=== PATIENT | female | born 1980 | race Caucasian/White ===

== ENCOUNTER 2019-11-08 02:18 | Emergency (ER) | payer MEDICAID ==
[~2019-11-08] VITALS: Ht 152.4 cm; Wt 63.6 kg
[2019-11-08 02:24] VITALS: TEMP 98.3
[2019-11-08] MEDS ORDERED: KAPSPARGO SPRIN25 MG PO (03:02)
[2019-11-08] MEDS ORDERED: ZOFRAN8 MG PO (03:03)
[2019-11-08] MEDS ORDERED: BRIVIACT75 MG PO (03:03)
[2019-11-08] MEDS ORDERED: XOPENEX HF0.045 MG/A IH (03:04)
[2019-11-08 04:02] VITALS: BP 122/72; PULSE 89
== END 2019-11-08 04:02 | disposition home or self-care (01) ==
LOC: COL.ER 02:18
DX: R04.0 Epistaxis (principal); F41.9 Anxiety disorder, unspecified; J45.909 Unspecified asthma, uncomplicated; G40.909 Epilepsy, unspecified, not intractable, without status epilepticus; F17.210 Nicotine dependence, cigarettes, uncomplicated; Z88.1 Allergy status to other antibiotic agents; Z88.6 Allergy status to analgesic agent

== ENCOUNTER 2019-12-29 15:38 | Emergency (ER) | payer MEDICAID ==
[~2019-12-29] VITALS: Ht 152.4 cm; Wt 65.9 kg
[~2019-12-29 15:38] MED LIST: BRIVIACT75 MG PO; KAPSPARGO SPRIN25 MG PO; XOPENEX HF0.045 MG/A IH; ZOFRAN8 MG PO
[2019-12-29 15:51] VITALS: TEMP 98.6
[2019-12-29 16:52] LABS: COLLECTION METHOD CLEAN CATCH
[2019-12-29 16:56] LABS: BASO # 0.1 (0.0-0.2); BASO % 0.8 % (0.0-2.0); EOS # 0.2 (0.0-0.7); EOS % 2.1 % (0-4.0); GRAN # 5.2 (1.4-6.5); GRAN % 62.6 % (42.2-75.2); HEMATOCRIT 43.4 % (37.0-47.0); HEMOGLOBIN 14.9 g/dl (12.5-16.0); LYMPH # 2.1 (1.2-3.4); LYMPH % 25.6 % (20.0-51.0); MEAN CELL VOLUME 89 fl (80.0-100.0); MEAN CORPUSCULAR HEMOGLOBIN 31 pg (27.0-31.0); MEAN CORPUSCULAR HGB CONC 34 g/dl (33.0-37.0); MEAN PLATELET VOLUME 11.2 fl (7.4-10.4); MONO # 0.7 (0.1-0.6); MONO % 8.7 % (1.7-9.3); PLATELET COUNT 206 K/mm3 (130-400); RED BLOOD COUNT 4.89 M/mm3 (4.10-5.30); REDCELL DISTRIBUTION WIDTH-CV 12.7 % (11.5-14.5)
[2019-12-29 16:59] LABS: MUCOUS Present /lpf; PH 5 (5-8); SQUAMOUS EPITHELIAL 0-2 /hpf; URINE APPEARANCE Hazy; URINE BACTERIA None Seen /hpf; URINE BILIRUBIN Negative (NEGATIVE); URINE BLOOD Negative (NEGATIVE); URINE COLOR Yellow; URINE GLUCOSE Negative (NEGATIVE); URINE KETONE Negative (NEGATIVE); URINE LEUKOCYTE ESTERASE Negative (NEGATIVE); URINE NITRATE Negative (NEGATIVE); URINE PROTEIN(semi-quant) Negative (NEGATIVE); URINE RBC 0-2 /hpf; URINE UROBILINOGEN Negative (NEGATIVE)
[2019-12-29 17:10] LABS: ALANINE AMINOTRANSFERASE 13 U/L (4-34); ALBUMIN 4.5 gm/dL (3.5-5.0); ALKALINE PHOSPHATASE 90 U/L (50-136); ANION GAP 9 mmol/L (7-16); AST,SGOT 18 U/L (15-37); BILIRUBIN,TOTAL 0.5 mg/dL (0.0-1.0); BLOOD UREA NITROGEN 10 mg/dL (7-17); CALCIUM 9.2 mg/dL (8.4-10.2); CARBON DIOXIDE 22 mmol/L (22-30); CHLORIDE 106 mmol/L (98-107); CREATININE, serum 0.75 (0.52-1.25); GLUCOSE 92 mg/dL (74-106); LIPASE 52 U/L (23-300); POTASSIUM 3.8 mmol/L (3.4-5.0); SODIUM 137 mmol/L (137-145); TOTAL PROTEIN 7.1 gm/dL (6.4-8.2)
[2019-12-29 17:14] LABS: C-REACTIVE PROTEIN < 0.5 mg/dL (0.0-0.9)
[2019-12-29 19:00] VITALS: BP 116/65; PULSE 63
== END 2019-12-29 19:00 | disposition home or self-care (01) ==
LOC: COL.ER 15:38
PROVIDERS: Family Medicine
DX: R10.11 Right upper quadrant pain (principal); G40.909 Epilepsy, unspecified, not intractable, without status epilepticus; Z90.49 Acquired absence of other specified parts of digestive tract
CPT/HCPCS: C9113; J2405; J3010; J7030

== ENCOUNTER 2020-05-23 11:37 | Day surgery (SDC) | payer MEDICAID ==
[~2020-05-23] VITALS: Ht 152.4 cm; Wt 65.6 kg
[~2020-05-23 11:37] MED LIST changes: +BENTYL 20MG20 MG/TAB PO
[2020-05-23] MEDS ORDERED: BRIVIACT100 MG PO (12:27)
[2020-05-23] MEDS ORDERED: LOPRESSOR 225 MG/TAB (12:31)
[2020-05-23] MEDS ORDERED: SINGULAIR 110 MG/TAB PO (12:35)
[2020-05-23] MEDS ORDERED: TRIAMCINOLONE ACETON (12:39)
[2020-05-23] MEDS ORDERED: 00186-0372-20 IH (12:40)
[2020-05-23] MEDS ORDERED: PRILOSEC 20MG20 MG PO (12:42)
[2020-05-23] MEDS ORDERED: TYLENOL ELIX32 MG/M2 PO (12:43)
[2020-05-23] MEDS ORDERED: 00186-0370-20 IH (12:45)
[2020-05-23 13:14] VITALS: BP 100/85; PULSE 86; TEMP 98
[2020-05-23] MEDS ORDERED: NORCO 325 MG-51 TAB PO (15:44)
[2020-05-23 16:15] VITALS: BP 111/67; PULSE 84; TEMP 97.5
[2020-05-23 16:30] VITALS: BP 121/63; PULSE 67
--- NOTE | 2020-05-23 17:13 | NUR ---
PT RETURNED FROM PACU PER CART INTO BAY#5. PT ALERT AND ORIENTATED, AWAKE AND NEEDING TO VOID. VOIDED WITHOUT DIFFICULTY. VSS, AFEBRILE. IVF INFUSING AND PATENT. PT STATED HAVING EPISODES OF DYSTONIA IN PACU, NONE NOTED AT THIS TIME. INSERTION SITESX4 ARE DRY AND INTACT. WILL CONT TO MONITOR PROGRESS. IS TOLERATING COLA PO WITHOUT NAUSEA OR VOMIING AT THIS TIME.
--- NOTE | 2020-05-23 17:17 | NUR ---
PT CONT TO TOLERATE FLUIDS AND IS EATING CRACKERS WITHOUT NAUSEA OR VOMITING. DENIES PAIN, INSERTION SITESX4 ARE DRY AND INTACT. PT STATES WANTING TO GO HOME. DISCHARGE INSTRUCTIONS GIVEN, PT VOICES UNDERSTANDING. RETURN APPT MADE FOR 2 WEEKS AND PT IS AWARE. #20 DC'D TO RIGHT WRIST WITHOUT DIFFICULTY OR REACTION. IV WAS WRAPPED GAUZE 4X4 AND PAPER TAPE. PT WAS SATISFIED WITH IV WRAP. AFTER IV DC, WAS WRAPPED WITH GAUZE 4X4 AND COBAN PER PT REQUEST. PT HAD ALSO TAKEN 5;00PM MEDS FOR HX OF SEIZURES. PT DC'D PER WC TO FAMILY VEHICLE. BOYFRIEND, EDWARD DRIVING.
[2020-05-23 17:25] VITALS: BP 111/67; PULSE 79; TEMP 98.6
== END 2020-05-23 17:00 | disposition home or self-care (01) ==
LOC: SDCO 11:37
DX: K80.10 Calculus of gallbladder with chronic cholecystitis without obstruction (principal); K21.9 Gastro-esophageal reflux disease without esophagitis; J45.909 Unspecified asthma, uncomplicated; Z90.710 Acquired absence of both cervix and uterus; F17.210 Nicotine dependence, cigarettes, uncomplicated; Z88.1 Allergy status to other antibiotic agents; Z88.8 Allergy status to other drugs, medicaments and biological substances; Z91.018 Allergy to other foods; I10 Essential (primary) hypertension; G43.909 Migraine, unspecified, not intractable, without status migrainosus; Z20.822 Contact with and (suspected) exposure to COVID-19
CPT/HCPCS: J0690; J1100; J1885; J2405; J2704; J2710; J3010

== ENCOUNTER 2020-07-04 22:55 | Emergency (ER) | payer MEDICAID ==
[~2020-07-04] VITALS: Ht 152.4 cm; Wt 65.9 kg
[~2020-07-04 22:55] MED LIST changes: +00186-0370-20 IH; +00186-0372-20 IH; +BRIVIACT100 MG PO; +LOPRESSOR 225 MG/TAB; +NORCO 325 MG-51 TAB PO; +PRILOSEC 20MG20 MG PO; +SINGULAIR 110 MG/TAB PO; +TRIAMCINOLONE ACETON; +TYLENOL ELIX32 MG/M2 PO
[2020-07-04 23:02] VITALS: TEMP 98.1
[2020-07-04 23:47] LABS: BASO # 0.1 (0.0-0.2); BASO % 0.9 % (0.0-2.0); EOS # 0.4 (0.0-0.7); EOS % 3.8 % (0-4.0); GRAN # 6.1 (1.4-6.5); GRAN % 56.7 % (42.2-75.2); HEMATOCRIT 46.9 % (37.0-47.0); HEMOGLOBIN 15.7 g/dl (12.5-16.0); LYMPH # 3.2 (1.2-3.4); LYMPH % 29.5 % (20.0-51.0); MEAN CELL VOLUME 91 fl (80.0-100.0); MEAN CORPUSCULAR HEMOGLOBIN 30 pg (27.0-31.0); MEAN CORPUSCULAR HGB CONC 34 g/dl (33.0-37.0); MONO # 0.9 (0.1-0.6); MONO % 8.8 % (1.7-9.3); PLATELET COUNT 253 K/mm3 (130-400); RED BLOOD COUNT 5.16 M/mm3 (4.10-5.30)
[2020-07-04 23:57] LABS: ALBUMIN 4.7 gm/dL (3.5-5.0); BILIRUBIN,TOTAL 0.4 mg/dL (0.0-1.0); CALCIUM 9.2 mg/dL (8.4-10.2); CREATININE, serum 0.7 (0.52-1.25); POTASSIUM 3.6 mmol/L (3.4-5.0); TOTAL PROTEIN 7.1 gm/dL (6.4-8.2)
[2020-07-05 00:12] LABS: PROLACTIN 14.3 ng/mL (3.0-18.6)
[2020-07-05 00:37] VITALS: BP 105/72; PULSE 73
== END 2020-07-05 00:52 | disposition home or self-care (01) ==
LOC: COL.ER 22:55
PROVIDERS: Emergency Medicine
DX: G40.909 Epilepsy, unspecified, not intractable, without status epilepticus (principal); R10.11 Right upper quadrant pain; Z88.8 Allergy status to other drugs, medicaments and biological substances; Z88.1 Allergy status to other antibiotic agents; Z79.51 Long term (current) use of inhaled steroids
CPT/HCPCS: J2060; J7030

== ENCOUNTER 2020-11-11 07:00 | Emergency (ER) | payer MEDICAID ==
[~2020-11-11] VITALS: Ht 152.4 cm; Wt 65.9 kg
[2020-11-11 07:08] VITALS: TEMP 97.5
[2020-11-11 07:46] LABS: HEMATOCRIT 46.5 % (37.0-47.0); HEMOGLOBIN 15.9 g/dl (12.5-16.0); MEAN CELL VOLUME 89 fl (80.0-100.0); MEAN CORPUSCULAR HEMOGLOBIN 31 pg (27.0-31.0); MEAN CORPUSCULAR HGB CONC 34 g/dl (33.0-37.0); MEAN PLATELET VOLUME 10.7 fl (7.4-10.4); PLATELET COUNT 214 K/mm3 (130-400); RED BLOOD COUNT 5.22 M/mm3 (4.10-5.30); REDCELL DISTRIBUTION WIDTH-CV 13.4 % (11.5-14.5)
[2020-11-11 08:00] LABS: ALBUMIN 4.5 gm/dL (3.5-5.0); BILIRUBIN,TOTAL 0.6 mg/dL (0.0-1.0); C-REACTIVE PROTEIN 1.2 mg/dL (0.0-0.9); CALCIUM 8.5 mg/dL (8.4-10.2); CREATININE, serum 0.68 (0.52-1.25); POTASSIUM 3.5 mmol/L (3.4-5.0); TOTAL PROTEIN 7.2 gm/dL (6.4-8.2)
[2020-11-11 08:59] LABS: BAND 4 % (0-10); LYMPHOCYTE 5 % (20.0-51.0); NEUTROPHILS 87 % (42.0-75.2); PLATELET ESTIMATE NORMAL (NORMAL)
[2020-11-11 09:36] LABS: COLLECTION METHOD CLEAN CATCH
[2020-11-11 09:46] LABS: MUCOUS Present /lpf; PH 5 (5-8); URINE APPEARANCE Hazy; URINE BACTERIA Rare /hpf; URINE BILIRUBIN Negative (NEGATIVE); URINE BLOOD 1+ (NEGATIVE); URINE COLOR Yellow; URINE GLUCOSE Negative (NEGATIVE); URINE KETONE Trace (NEGATIVE); URINE LEUKOCYTE ESTERASE 3+ (NEGATIVE); URINE NITRATE Negative (NEGATIVE); URINE PROTEIN(semi-quant) Negative (NEGATIVE); URINE UROBILINOGEN Negative (NEGATIVE)
[2020-11-11] MEDS ORDERED: OMNICEF 300MG300 MG PO (11:02)
[2020-11-11 12:24] VITALS: BP 116/67; PULSE 111
== END 2020-11-11 11:24 | disposition home or self-care (01) ==
LOC: COL.ER 07:00
PROVIDERS: Family Medicine
DX: K52.9 Noninfective gastroenteritis and colitis, unspecified (principal); N39.0 Urinary tract infection, site not specified; J45.909 Unspecified asthma, uncomplicated; G40.909 Epilepsy, unspecified, not intractable, without status epilepticus; F17.210 Nicotine dependence, cigarettes, uncomplicated; Z90.49 Acquired absence of other specified parts of digestive tract; Z20.822 Contact with and (suspected) exposure to COVID-19; Z88.1 Allergy status to other antibiotic agents; Z79.899 Other long term (current) drug therapy
CPT/HCPCS: C9113; J0696; J2060; J2405; J2765; J7030; J7120

== ENCOUNTER 2021-01-11 18:14 | Emergency (ER) | payer MEDICAID ==
[~2021-01-11] VITALS: Ht 152.4 cm; Wt 65.9 kg
[~2021-01-11 18:14] MED LIST changes: +OMNICEF 300MG300 MG PO
[2021-01-11 18:38] VITALS: TEMP 98.4
[2021-01-11] MEDS ORDERED: PREDNISONE20 MG PO (21:29)
[2021-01-11] MEDS ORDERED: ZITHROMAX 250M250 MG PO (21:52)
[2021-01-11 22:00] VITALS: BP 115/75; PULSE 89
== END 2021-01-11 22:00 | disposition home or self-care (01) ==
LOC: COL.ER 18:14
DX: J45.909 Unspecified asthma, uncomplicated (principal); Z20.822 Contact with and (suspected) exposure to COVID-19; Z79.899 Other long term (current) drug therapy
CPT/HCPCS: J7512

== ENCOUNTER → 2021-07-06 | Outpatient (CLI) | payer MEDICAID ==
[~2021-07-06] MED LIST changes: +PREDNISONE20 MG PO; +ZITHROMAX 250M250 MG PO
== END ==
LOC: ZCOL.LAB 16:30
DX: L02.411 Cutaneous abscess of right axilla (principal)

== ENCOUNTER 2023-11-02 14:38 | Emergency (ER) | payer MEDICAID ==
[~2023-11-02] VITALS: Ht 152.4 cm; Wt 78.6 kg
[2023-11-02 14:46] VITALS: TEMP 98.3
[2023-11-02] MEDS ORDERED: Morphine 4 MG/ML VIAL IV ONE (15:15)
[2023-11-02 17:00] VITALS: BP 141/77; PULSE 74
== END 2023-11-02 17:00 | disposition home or self-care (01) ==
LOC: COL.ER 14:38
DX: M25.511 Pain in right shoulder (principal); Z91.040 Latex allergy status

== ENCOUNTER 2023-12-19 17:13 | Emergency (ER) | payer MEDICAID ==
[~2023-12-19] VITALS: Ht 152.4 cm; Wt 80.5 kg
[2023-12-19 17:18] VITALS: TEMP 98.5
[2023-12-19] MEDS ORDERED: Pantoprazole 40 MG in NS 10 ML IV ONE (17:45)
[2023-12-19] MEDS ORDERED: Lidocaine 2% Viscous 15 ML UNIT DOSE MM ONE (17:45)
[2023-12-19 17:46] LABS: BASO # 0.1 K/mm3 (0.0-0.2); BASO % 0.6 % (0.0-2.0); EOS # 0.1 K/mm3 (0.0-0.7); EOS % 0.9 % (0.0-4.0); GRAN # 6.1 K/mm3 (1.4-6.5); GRAN % 70.2 % (42.2-75.2); HEMATOCRIT 41.5 % (37.0-47.0); LYMPH # 1.5 K/mm3 (1.2-3.4); LYMPH % 16.8 % (20.0-51.0); MEAN CELL VOLUME 87 fl (80.0-100.0); MEAN CORPUSCULAR HEMOGLOBIN 30 pg (27-31); MEAN CORPUSCULAR HGB CONC 34 g/dl (33.0-37.0); MEAN PLATELET VOLUME 11.2 fl (7.4-10.4); MONO % 11.2 % (1.7-9.3); PLATELET COUNT 189 K/mm3 (130-400); RED BLOOD COUNT 4.75 M/mm3 (4.10-5.30)
[2023-12-19 17:48] LABS: INR 1.1 (0.8-3.0); PROTHROMBIN TIME 11.6 SECONDS (9.7-12.8)
[2023-12-19 17:51] LABS: PARTIAL THROMBOPLASTIN TIME 32.5 SECONDS (26.0-37.0)
[2023-12-19 18:00] LABS: ALANINE AMINOTRANSFERASE 20 U/L (0-55); ALKALINE PHOSPHATASE 99 U/L (40-150); ANION GAP 12 mmol/L (7-16); AST,SGOT 15 U/L (5-34); BILIRUBIN,TOTAL 0.4 mg/dL (0.2-1.2); BLOOD UREA NITROGEN 7 mg/dL (7-19); C-REACTIVE PROTEIN 7.52 mg/dL (0.00-0.50); CALCIUM 9.1 mg/dL (8.4-10.2); CHLORIDE 104 mEq/L (98-107); CREATININE, serum 0.74 mg/dL (0.57-1.11); GLUCOSE 86 mg/dL (70-99); LIPASE 15 U/L (8-78); POTASSIUM 3.6 mEq/L (3.5-4.5); SODIUM 138 mEq/L (136-145); TOTAL PROTEIN 6.9 g/dl (6.2-8.1)
[2023-12-19 18:09] LABS: TROPONIN-I < 0.010 ng/mL (0.00-0.033)
[2023-12-19] MEDS ORDERED: Iohexol 300 - 100 ML VIAL IV ONE (18:43)
[2023-12-19] MEDS ORDERED: NS 50 ML IV ONE (18:43)
[2023-12-19 19:16] LABS: COLLECTION METHOD CLEAN CATCH
[2023-12-19] MEDS ORDERED: LYRICA 150MG C150 MG PO (19:17)
[2023-12-19] MEDS ORDERED: ZOLOFT 100MG100 MG PO (19:18)
[2023-12-19] MEDS ORDERED: TESSALON PERLE200 MG (19:19)
[2023-12-19] MEDS ORDERED: ISOPTIN SR120 MG PO (19:20)
[2023-12-19] MEDS ORDERED: Ondansetron 4 MG/2 ML VIAL IV ONE (19:30)
[2023-12-19] MEDS ORDERED: Morphine 4 MG/ML VIAL IV ONE (19:30)
[2023-12-19 19:31] LABS: URINE APPEARANCE CLEAR (CLEAR/HAZY); URINE BLOOD NEGATIVE (NEGATIVE); URINE COLOR YELLOW (YELLOW); URINE GLUCOSE NEGATIVE (NEGATIVE); URINE KETONE NEGATIVE (NEGATIVE); URINE NITRATE NEGATIVE (NEGATIVE); URINE PROTEIN(semi-quant) NEGATIVE (NEGATIVE); URINE UROBILINOGEN 0.2 E.U/dL (0.2-1.0)
[2023-12-19] MEDS ORDERED: Home oxyCODONE/Acetaminophen 5/325 MG #4 TAB/PACK PO ONE (20:00)
[2023-12-19 20:08] VITALS: BP 109/66; PULSE 96
== END 2023-12-19 20:08 | disposition home or self-care (01) ==
LOC: COL.ER 17:13
PROVIDERS: Emergency Medicine
DX: R07.89 Other chest pain (principal); M54.6 Pain in thoracic spine; Z88.1 Allergy status to other antibiotic agents; Z91.040 Latex allergy status; Z87.891 Personal history of nicotine dependence
CPT/HCPCS: J2270; J2405; J2470; Q9967

== ENCOUNTER 2024-01-26 18:13 | Emergency (ER) | payer MEDICAID ==
[~2024-01-26] VITALS: Ht 152.4 cm; Wt 77.3 kg
[~2024-01-26 18:13] MED LIST changes: +ISOPTIN SR120 MG PO; +LYRICA 150MG C150 MG PO; +TESSALON PERLE200 MG; +ZOLOFT 100MG100 MG PO
[2024-01-26 18:24] VITALS: TEMP 98.2
[2024-01-26] MEDS ORDERED: droPERidol 2.5 MG/ML 2 ML VIAL IV ONE (19:15)
[2024-01-26] MEDS ORDERED: NS 1,000 ML IV ONE (19:15)
[2024-01-26 19:33] LABS: BASO % 0.4 % (0.0-2.0); EOS % 0.1 % (0.0-4.0); GRAN # 5.9 K/mm3 (1.4-6.5); GRAN % 82.7 % (42.2-75.2); HEMATOCRIT 40.9 % (37.0-47.0); HEMOGLOBIN 14.3 g/dl (12.5-16.0); LYMPH # 0.7 K/mm3 (1.2-3.4); MEAN CELL VOLUME 86 fl (80.0-100.0); MEAN CORPUSCULAR HEMOGLOBIN 30 pg (27-31); MEAN CORPUSCULAR HGB CONC 35 g/dl (33.0-37.0); MEAN PLATELET VOLUME 11.8 fl (7.4-10.4); MONO # 0.5 K/mm3 (0.1-0.6); MONO % 6.5 % (1.7-9.3); PLATELET COUNT 154 K/mm3 (130-400); RED BLOOD COUNT 4.75 M/mm3 (4.10-5.30)
[2024-01-26 19:53] LABS: ALBUMIN 3.9 g/dL (3.5-5.0); BILIRUBIN,TOTAL 0.4 mg/dL (0.2-1.2); CALCIUM 8.8 mg/dL (8.4-10.2); CREATININE, serum 0.76 mg/dL (0.57-1.11); POTASSIUM 4.6 mEq/L (3.5-4.5)
[2024-01-26 21:05] LABS: COLLECTION METHOD CLEAN CATCH
[2024-01-26 21:09] LABS: PH 5.5 (5.0-8.5); URINE APPEARANCE CLEAR (CLEAR/HAZY); URINE BLOOD NEGATIVE (NEGATIVE); URINE COLOR YELLOW (YELLOW); URINE GLUCOSE NEGATIVE (NEGATIVE); URINE KETONE NEGATIVE (NEGATIVE); URINE NITRATE NEGATIVE (NEGATIVE); URINE PROTEIN(semi-quant) NEGATIVE (NEGATIVE); URINE UROBILINOGEN 0.2 E.U/dL (0.2-1.0)
[2024-01-26 21:29] VITALS: BP 110/62; PULSE 73
== END 2024-01-26 22:12 | disposition home or self-care (01) ==
LOC: COL.ER 18:13
PROVIDERS: Physician Assistant
DX: R52 Pain, unspecified (principal); Z87.891 Personal history of nicotine dependence; Z20.822 Contact with and (suspected) exposure to COVID-19
CPT/HCPCS: J1790; J7030